=== PATIENT | male | born 1965 | race Caucasian/White ===

== ENCOUNTER 2019-03-01 17:54 | Inpatient (IN) | payer OTHER ==
--- NOTE | 2019-03-01 19:11 | ER Document Report ---
ED Medical Screen (RME) - General Chief Complaint: Memory Loss Stated Complaint: BODY SHAKES, POSSIBLE MEMORY LOSS Time Seen by Provider: 03/01/19 18:54 Information source: Patient Notes: Patient presents with after she found him sitting outside in the cold unable to get into their home. states that typically spouse would have called or texted her if there was any issues and would have been able to get in to the garage as he had taught her how to get into the garage. Patient states that he was having shivering episode yesterday and today but is uncertain if he had a fever. Patient denies any complaints although spouse is at his side and is very concerned that he has not been acting normally. I have greeted and performed a rapid initial assessment of this patient. A comprehensive ED assessment and evaluation of the patient, analysis of test results and completion of the medical decision making process will be conducted by additional ED providers. Physical Exam - Vital signs Vitals: Temp Pulse Resp BP Pulse Ox 100 F 128 H 18 128/69 H 97 03/01/19 18:10 03/01/19 18:10 03/01/19 18:10 03/01/19 18:10 03/01/19 18:10 - General General appearance: Alert - Cardiovascular Rhythm: Tachycardia Heart sounds: S1 appreciated, S2 appreciated - Neurological [place] Coma Scale Eye Opening: Spontaneous [place] Coma Scale Verbal: Oriented [place] Coma Scale Motor: Obeys Commands [place] Coma Scale Total: 15 Course - Vital Signs Vital signs: Temp Pulse Resp BP Pulse Ox 100 F 128 H 18 128/69 H 97 03/01/19 18:10 03/01/19 18:10 03/01/19 18:10 03/01/19 18:10 03/01/19 18:10
--- NOTE | 2019-03-01 19:49 | RADIOLOGY REPORT (SQ) ---
EXAM DESCRIPTION: CT HEAD WITHOUT COMPLETED DATE/TIME: 03/01/2019 7:39 pm REASON FOR STUDY: AMS COMPARISON: None. TECHNIQUE: Axial images acquired through the brain without intravenous contrast. Images reviewed wi th bone, brain and subdural windows. Additional sagittal and coronal reconstructions were generated. Images stored on PACS. All CT scanners at this facility use dose modulation, iterative reconstruction, and/or weight based d osing when appropriate to reduce radiation dose to as low as reasonably achievable (ALARA). [facility]: Dose Right [facility]: CareDose [facility]: Dose Right [facility]: Teradose 4D [facility]: Whyteboard RADIATION DOSE: CT Rad equipment meets quality standard of care and radiation dose reduction techniq ues were employed. CTDIvol: 53.2 mGy. DLP: 1070 mGy-cm. mGy. LIMITATIONS: None. FINDINGS: VENTRICLES: Normal size and contour. CEREBRUM: No masses. No hemorrhage. No midline shift. No evidence for acute infarction. Normal gra y/white matter differentiation. No areas of low density in the white matter. CEREBELLUM: No masses. No hemorrhage. No alteration of density. No evidence for acute infarction. EXTRAAXIAL SPACES: No fluid collections. No masses. ORBITS AND GLOBE: No intra- or extraconal masses. Normal contour of globe without masses. CALVARIUM: No fracture. PARANASAL SINUSES: No fluid or mucosal thickening. SOFT TISSUES: No mass or hematoma. OTHER: No other significant finding. IMPRESSION: NORMAL BRAIN CT WITHOUT CONTRAST. EVIDENCE OF ACUTE STROKE: NO. COMMENT: Quality ID # [id number]: Final reports with documentation of one or more dose reduction techniques (e.g., Automated exposure control, adjustment of the mA and/or kV according to patient size, use of iterative reconstruction technique) TECHNICAL DOCUMENTATION: JOB ID: [id number] [email or web address]- All Rights Reserved Reading location - IP/workstation name: [email or web address]
--- NOTE | 2019-03-01 19:55 | RADIOLOGY REPORT (SQ) ---
EXAM DESCRIPTION: CHEST 2 VIEWS COMPLETED DATE/TIME: 03/01/2019 7:29 pm REASON FOR STUDY: AMS, chills COMPARISON: None. EXAM PARAMETERS: NUMBER OF VIEWS: two views TECHNIQUE: Digital Frontal and Lateral radiographic views of the chest acquired. RADIATION DOSE: NA LIMITATIONS: none FINDINGS: LUNGS AND PLEURA: No opacities, masses or pneumothorax. No pleural effusion. MEDIASTINUM AND HILAR STRUCTURES: No masses or contour abnormalities. HEART AND VASCULAR STRUCTURES: Heart normal size. No evidence for failure. BONES: No acute findings. HARDWARE: None in the chest. OTHER: No other significant finding. IMPRESSION: NO ACUTE RADIOGRAPHIC FINDING IN THE CHEST. TECHNICAL DOCUMENTATION: JOB ID: [id number] [employer]- All Rights Reserved Reading location - IP/workstation name: [email or web address]
[2019-03-01 20:16] LABS: HEMOGLOBIN 11.8 g/dL (13.5-17.0); MEAN CORPUSCULAR HEMOGLOBIN 26.7 pg (27.0-33.4); MEAN CORPUSCULAR HGB CONC 33.6 g/dL (32.0-36.0); MEAN CORPUSCULAR VOLUME 79 fl (80-97); PLATELET COUNT 200 10^3/uL (150-450); RED BLOOD COUNT 4.41 10^6/uL (4.35-5.55); RED CELL DISTRIBUTION WIDTH 14.8 % (11.5-14.0); WHITE BLOOD COUNT 14.2 10^3/uL (4.0-10.5)
[2019-03-01 20:25] LABS: APPEARANCE,URINE SLIGHTLY-CLOUDY; BILIRUBIN,URINE NEGATIVE (NEGATIVE); COLOR,URINE YELLOW; GLUCOSE, URINE >=500 mg/dL (NEGATIVE); KETONES,URINE 80 mg/dL (NEGATIVE); LEUKOCYTE ESTERASE,URINE NEGATIVE (NEGATIVE); NITRITE,URINE POSITIVE (NEGATIVE); PROTEIN,URINE 100 mg/dL (NEGATIVE); URINE SPECIFIC GRAVITY 1.023; UROBILINOGEN,URINE NEGATIVE mg/dL (<2.0)
[2019-03-01 20:35] LABS: URINE AMPHETAMINES SCREEN NEGATIVE; URINE BARBITURATES SCREEN NEGATIVE; URINE BENZODIAZEPINES SCREEN NEGATIVE; URINE COCAINE SCREEN NEGATIVE; URINE MARIJUANA (THC) SCREEN NEGATIVE; URINE METHADONE SCREEN NEGATIVE; URINE PHENCYCLIDINE SCREEN NEGATIVE
[2019-03-01 20:39] LABS: ALBUMIN 3.6 g/dL (3.5-5.0); ALKALINE PHOSPHATASE 104 U/L (38-126); ASPARTATE AMINO TRANSFERASE 24 U/L (17-59); BILIRUBIN,DIRECT 0.3 mg/dL (0.0-0.4); BILIRUBIN,TOTAL 0.5 mg/dL (0.2-1.3); BLOOD UREA NITROGEN 31 mg/dL (7-20); CALCIUM 9.1 mg/dL (8.4-10.2); CHLORIDE 90 mmol/L (98-107); POTASSIUM 4.4 mmol/L (3.6-5.0); TOTAL PROTEIN 6.8 g/dL (6.3-8.2)
[2019-03-01 20:43] LABS: ABSOLUTE LYMPHOCYTES# (MANUAL) 0.3 10^3/uL (0.5-4.7); ABSOLUTE MONOCYTES # (MANUAL) 1.1 10^3/uL (0.1-1.4); ANISOCYTOSIS SLIGHT; BAND NEUTROPHILS % (MANUAL) 9 % (3-5); BASOPHILS % (MANUAL) 0 % (0-2); EOSINOPHILS % (MANUAL) 0 % (0-6); LYMPHOCYTES % (MANUAL) 2 % (13-45); MONOCYTES % (MANUAL) 8 % (3-13); SEGMENTED NEUTROPHILS % (MAN) 81 % (42-78); TOTAL CELLS COUNTED 100
[2019-03-01 20:44] LABS: CARBON DIOXIDE 17 mmol/L (22-30)
[2019-03-01 20:45] LABS: PLATELET COMMENT ADEQUATE
[2019-03-01 20:57] LABS: ANION GAP 23 (5-19)
[2019-03-01 21:00] LABS: GLUCOSE 522 mg/dL (75-110)
[2019-03-01] MEDS ORDERED: NORMAL SALINE 1000 ML 2,500 ML IV ONE (21:37)
[2019-03-01] MEDS ORDERED: CEFTRIAXONE 2 GM/D5W RTU 2 GM/50 ML RTUPB IV ONE (21:38)
--- NOTE | 2019-03-01 21:44 | ER Document Report ---
ED General - General Chief Complaint: Altered Mental Status Stated Complaint: BODY SHAKES, POSSIBLE MEMORY LOSS Time Seen by Provider: 03/01/19 18:54 Notes: Patient is a 53-year-old male that comes emergency department for chief complaint of generalized weakness, shaking chills, breaking out in sweats, and intermittent confusion and memory issues which started last night. Patient states he had the chills last night, today his boss took him home because he could not stop shivering, states that he was having recollection issues and was sluggish when she found him. Patient is not altered otherwise. Patient denies headache, sore throat, shortness of breath, chest pain, abdominal pain, vomiting. He states he has been "urinating every hour" and he recently was constipated but this resolved. He takes no daily medications, he denies smoking, alcohol, recreational drugs, he denies any surgeries, he does not have a primary care or any medical diagnosis. - Related Data Allergies/Adverse Reactions: No Known Allergies Allergy (Unverified 03/01/19 22:14) Past Medical History - General Information source: Patient - Social History Smoking Status: Never Smoker Frequency of alcohol use: None Drug Abuse: None Lives with: Family Family History: Reviewed & Not Pertinent Patient has suicidal ideation: No Patient has homicidal ideation: No Surgical Hx: Negative - Immunizations Immunizations up to date: Yes Hx Diphtheria, Pertussis, Tetanus Vaccination: Yes Review of Systems - Review of Systems Constitutional: See HPI EENT: No symptoms reported Cardiovascular: No symptoms reported Respiratory: No symptoms reported Gastrointestinal: No symptoms reported Genitourinary: See HPI Male Genitourinary: No symptoms reported Musculoskeletal: No symptoms reported Skin: No symptoms reported Hematologic/Lymphatic: No symptoms reported Neurological/Psychological: See HPI Physical Exam - Vital signs Vitals: Temp Pulse Resp BP Pulse Ox 100 F 128 H 18 128/69 H 97 03/01/19 18:10 03/01/19 18:10 03/01/19 18:10 03/01/19 18:10 03/01/19 18:10 - Notes Notes: GENERAL: Patient pale, he is alert and interactive but he is slightly ill- appearing HEAD: Normocephalic, atraumatic. EYES: Pupils equal, round, and reactive to light. Extraocular movements intact. ENT: Oral mucosa dry, tongue midline. Oropharynx unremarkable. Airway patent. NECK: Full range of motion. Supple. Trachea midline. LUNGS: Clear to auscultation bilaterally, no wheezes, rales, or rhonchi. No respiratory distress. HEART: Tachycardia, normal rhythm, no murmur ABDOMEN: Soft, non-tender. Non-distended. EXTREMITIES: Moves all 4 extremities spontaneously. No edema, normal radial and dorsalis pedis pulses bilaterally. No cyanosis. BACK: no cervical, thoracic, lumbar midline tenderness. No saddle anesthesia, normal distal neurovascular exam. Moves all extremities in full range of motion. NEUROLOGICAL: Alert and oriented x3. Normal speech. Cranial nerves II through XII grossly intact. PSYCH: Normal affect, normal mood. SKIN: Pale Course - Re-evaluation Re-evalutation: Patient with initial temperature of 100, tachycardic, has shaking chills, has bandemia 9%, has evidence of urinary tract infection, has no insight diabetes with marked hyperglycemia and some acidosis. Unclear if the acidosis is from the hyperglycemia or from suspected sepsis. When I had the patient we immediately placed 2 large-bore peripheral IVs, began IV fluid resuscitation, and started antibiotic coverage for suspected urinary tract source. Cultures are all pending. Lactic acid fortunately is not elevated. Patient still has a stable blood pressure. Patient is alert and oriented, CAT scan of the head is negative. Patient will require hospitalization for new diabetes and suspected sepsis. I discussed with patient at length, he states agreement and appreciation. Discussed with Dr. Durham, hospitalist, patient accepted to [facility] full admission. He agrees with IV fluid resuscitation and does not recommend insulin drip at this time. - Vital Signs Vital signs: Temp Pulse Resp BP Pulse Ox 98.8 F 101 H 22 H 116/72 94 03/02/19 03:05 03/02/19 03:05 03/02/19 03:05 03/02/19 03:05 03/02/19 03:05 - Laboratory Result Diagrams: 03/02/19 05:22 03/02/19 05:22 Laboratory results interpreted by me: 03/01/19 03/01/19 03/01/19 19:47 19:47 19:47 WBC 14.2 H Hgb 11.8 L Hct 35.0 L MCV 79 L MCH 26.7 L RDW 14.8 H Seg Neuts % (Manual) 81 H Band Neutrophils % 9 H Lymphocytes % (Manual) 2 L Abs Neuts (Manual) 12.8 H Abs Lymphs (Manual) 0.3 L Sodium 130.2 L Chloride 90 L Carbon Dioxide 17 L Anion Gap 23 H BUN 31 H Glucose 522 H* POC Glucose Urine Protein 100 H Urine Glucose (UA) >=500 H Urine Ketones 80 H Urine Blood MODERATE H Urine Nitrite POSITIVE H 03/01/19 22:00 WBC Hgb Hct MCV MCH RDW Seg Neuts % (Manual) Band Neutrophils % Lymphocytes % (Manual) Abs Neuts (Manual) Abs Lymphs (Manual) Sodium Chloride Carbon Dioxide Anion Gap BUN Glucose POC Glucose 548 H* Urine Protein Urine Glucose (UA) Urine Ketones Urine Blood Urine Nitrite Discharge - Discharge Clinical Impression: Bandemia, Shaking chills, Tachycardia, Newly diagnosed diabetes, Metabolic acidosis Urinary tract infection Qualifiers: Urinary tract infection type: site unspecified Hematuria presence: without hematuria Qualified Code(s): N39.0 - Urinary tract infection, site not specified Condition: Serious Disposition: ADMITTED INPATIENT Admitting Provider: Herminio (Hospitalist) Unit Admitted: [facility]
--- NOTE | 2019-03-01 22:01 | EKG REPORT ---
SEVERITY:- ABNORMAL ECG - SINUS TACHYCARDIA PROBABLE LEFT ATRIAL ABNORMALITY CONSIDER ANTEROSEPTAL INFARCT BORDERLINE T WAVE ABNORMALITIES : Confirmed by: Mary Pope 01-Mar-2019 22:00:41
[2019-03-01] MEDS ORDERED: MAG HYDROX/AL HYDROX/SIMETH SUSP 30 ML UDCUP PO PRN (22:30)
[2019-03-01] MEDS ORDERED: PROMETHAZINE HCL INJ 25 MG/1 ML VIAL IV PRN (22:30)
[2019-03-01] MEDS ORDERED: MAGNESIUM HYDROXIDE SUSP 30 ML UDCUP PO PRN (22:30)
[2019-03-01] MEDS ORDERED: RINGERS SOLUTION,LACTATED 1,000 ML IV PRN (22:30)
[2019-03-01] MEDS ORDERED: ACETAMINOPHEN 325 MG TABLET PO PRN (22:38)
[2019-03-01] MEDS ORDERED: INSULIN REG, HUMAN 100 UNIT/ML 3 ML VIAL (PYX) SUBCUT PRN (22:38)
[2019-03-01] MEDS ORDERED: MORPHINE SULFATE 10 MG/ML INJ IV PRN ×3 (22:38)
[2019-03-01] MEDS ORDERED: DEXTROSE 50%-WATER 25 GM/50 ML DISP.SYRIN IV PRN ×2 (22:39)
[2019-03-01] MEDS ORDERED: GLUCAGON,HUMAN RECOMB 1 MG INJ IM PRN (22:39)
[2019-03-01] MEDS ORDERED: DEXTROSE 40% GEL 15 GM TUBE PO PRN ×2 (22:39)
[2019-03-01] MEDS ORDERED: NORMAL SALINE 100 ML with INSULIN REGULAR, HUMAN 100 UNIT IV PRN ×2 (22:41)
[2019-03-01] MEDS ORDERED: MEROPENEM 1 GM VIAL IV PRN (22:45)
[2019-03-01] MEDS ORDERED: DOPAMINE HCL/DEXTROSE 5%-WATER 800 MG/250 ML RTUINJ IV PRN (22:46)
[2019-03-01 23:02] LABS: VENOUS BLOOD BASE EXCESS -9.2 mmol/L; VENOUS BLOOD HCO3 15.6 mmol/L (20-32); VENOUS BLOOD PCO2 31.9 mmHg (35-63); VENOUS BLOOD PH 7.31 (7.30-7.42)
[2019-03-01] MEDS: FAMOTIDINE 20 MG TABLET PO SCH (23:29)
[2019-03-01] MEDS ORDERED: MEROPENEM 1 GM in NORMAL SALINE 50 ML IV ONE (23:30)
[2019-03-02] MEDS ORDERED: INSULIN REG, HUMAN 100 UNIT/ML 3 ML VIAL (PYX) IV ONE (00:36)
--- NOTE | 2019-03-02 00:57 | PDOC H&P ---
History of Present Illness Admission Date/PCP: 03/01/2019 22:06 No local PCP Patient complains of: Rigors History of Present Illness: ANITA MUSTAFA is a 53 year old male who presents the emergency room with a 1 day history of severe rigors. The patient admits having numerous episodes of rigors associated with alternate chilling and diaphoresis with subjective fever. His rigors were accompanied by progressively worsening generalized weakness and brief episodes of mental slowness/confusion over the last 24 hours. He further admits frequent urination over the last 24 hours but otherwise denies additional associated or accompanying signs and symptoms. He denies prior similar episodes. He has not identified any aggravating or ameliorating factors for his rigors. In the emergency room he was found to have pyuria with an elevated white blood count of 14,200 with 9% bands. He was also noted to have a blood sugar of 522 without a previous history of diabetes. He was initially tachycar dic and hypotensive on his arrival to the ER and was also noted to have a mild metabolic acidosis. He was treated with high-volume fluid replacement and antibiotic therapy was initiated after blood and urine cultures were obtained. His blood pressure and heart rate improved over his course of therapy in the emergency room and he was subsequently admitted to the [facility] for further evaluation and treatment. Past Medical History Cardiac Medical History: Denies: Coronary Artery Disease, Myocardial Infarction, Hyperlipidema, Hypertension Pulmonary Medical History: Denies: Asthma, Chronic Obstructive Pulmonary Disease (COPD) EENT Medical History: Denies: Cataracts, Ears - Hearing aids Neurological Medical History: Denies: Hemorrhagic CVA, Ischemic CVA, Seizures Endocrine Medical History: Denies: Diabetes Mellitus Type 1, Diabetes Mellitus Type 2, Hyperthyroidism, Hypothyroidism, Obesity Renal/ Medical History: Denies: Chronic Kidney Disease, Nephrolithiasis Malignancy Medical History: Reports: None GI Medical History: Denies: Cirrhosis, Crohn's Disease, Gastroesophageal Reflux Disease, Hepatitis, Peptic Ulcer Disease, Ulcerative Colitis Musculoskeltal Medical History: Denies: Arthritis, Gout Skin Medical History: Denies: Eczema, Psoriasis Psychiatric Medical History: Denies: Alcohol Dependency, Substance Abuse, Tobacco Dependency Traumatic Medical History: Reports: None Hematology: Denies: Anemia, Bleeding Tendencies Infectious Medical History: Reports: None Past Surgical History Past Surgical History: Reports: None Social History Information Source: Patient Lives with: Spouse/Significant other Smoking Status: Never Smoker Electronic Cigarette use?: No Frequency of Alcohol Use: None Hx Recreational Drug Use: No Drugs: None Hx Prescription Drug Abuse: No - Advance Directive Resuscitation Status: Full Code Surrogate healthcare decision maker:: Marion Mustafa Family History Family History: denies: CAD, DM, Hypertension, Malignancy Parental Family History Reviewed: Yes Children Family History Reviewed: No Sibling(s) Family History Reviewed.: Yes Medication/Allergy Allergies/Adverse Reactions: No Known Allergies Allergy (Unverified 03/01/19 22:14) Review of Systems Constitutional: PRESENT: as per HPI, chills, weakness - Generalized weakness, other - Rigors Eyes: ABSENT: visual disturbances, other - Eye pain Ears: ABSENT: hearing changes, other - Ear pain Nose, Mouth, and Throat: ABSENT: headache(s), mouth pain, sore throat Cardiovascular: ABSENT: chest pain, palpitations Respiratory: ABSENT: cough, dyspnea Gastrointestinal: PRESENT: constipation - Recent constipation resolved prior to onset of current symptoms. ABSENT: abdominal pain, diarrhea, nausea, vomiting Genitourinary: ABSENT: dysuria, hematuria Musculoskeletal: PRESENT: as per HPI, muscle weakness - Generalized. ABSENT: back pain, joint swelling Integumentary: ABSENT: pruritus, rash Neurological: PRESENT: as per HPI, confusion - Mental slowness and difficulty remembering, memory loss - Mental slowness and difficulty remembering. ABSENT: convulsions, focal weakness, syncope Psychiatric: ABSENT: anxiety, depression Endocrine: PRESENT: as per HPI, polyuria. ABSENT: cold intolerance, heat intolerance, polydipsia, polyphagia Hematologic/Lymphatic: ABSENT: easy bleeding, easy bruising Allergic/Immunologic: ABSENT: seasonal rhinorrhea Physical Exam Vital Signs: Temp Pulse Resp BP Pulse Ox 100 F 128 H 18 128/69 H 97 03/01/19 18:10 03/01/19 18:10 03/01/19 18:10 03/01/19 18:10 03/01/19 18:10 Intake & Output 02/27/19 02/28/19 03/01/19 23:59 23:59 23:59 Weight 83.915 kg General appearance: PRESENT: no acute distress, cooperative Head exam: PRESENT: atraumatic, normocephalic Eye exam: PRESENT: conjunctiva pink. ABSENT: conjunctival injection, scleral icterus Ear exam: PRESENT: normal external ear exam. ABSENT: bleeding, drainage Mouth exam: PRESENT: dry mucosa, neck supple Neck exam: ABSENT: thyromegaly, tracheal deviation Respiratory exam: PRESENT: clear to auscultation abhay, tachypnea, unlabored. ABSENT: symmetrical Cardiovascular exam: PRESENT: RRR, tachycardia. ABSENT: clicks, gallop, rubs Pulses: PRESENT: normal radial pulses, normal dorsalis pedis pul Vascular exam: PRESENT: normal capillary refill. ABSENT: pallor GI/Abdominal exam: PRESENT: normal bowel sounds, soft Rectal exam: PRESENT: deferred Extremities exam: ABSENT: joint swelling, pedal edema Musculoskeletal exam: ABSENT: deformity, dislocation Neurological exam: PRESENT: alert, oriented to person, oriented to place, oriented to time, oriented to situation, CN II-XII grossly intact. ABSENT: motor sensory deficit Psychiatric exam: PRESENT: appropriate affect, normal mood Skin exam: PRESENT: dry, intact, warm. ABSENT: jaundice, rash, urticaria Results Laboratory Results: 03/01/19 19:47 03/01/19 19:47 03/01/19 03/01/19 03/01/19 19:47 19:47 19:47 WBC 14.2 H RBC 4.41 Hgb 11.8 L Hct 35.0 L MCV 79 L MCH 26.7 L MCHC 33.6 RDW 14.8 H Plt Count 200 Seg Neutrophils % Not Reportable Sodium 130.2 L Potassium 4.4 Chloride 90 L Carbon Dioxide 17 L Anion Gap 23 H BUN 31 H Creatinine 1.05 Est GFR ( Amer) > 60 Glucose 522 H* Lactic Acid Calcium 9.1 Total Bilirubin 0.5 AST 24 Alkaline Phosphatase 104 Total Protein 6.8 Albumin 3.6 Urine Color YELLOW Urine Appearance SLIGHTLY-CLOUDY Urine pH 5.0 Ur Specific Errol 1.023 Urine Protein 100 H Urine Glucose (UA) >=500 H Urine Ketones 80 H Urine Blood MODERATE H Urine Nitrite POSITIVE H Ur Leukocyte Esterase NEGATIVE Urine WBC (Auto) 19 Urine RBC (Auto) 4 03/01/19 19:47 WBC RBC Hgb Hct MCV MCH MCHC RDW Plt Count Seg Neutrophils % Sodium Potassium Chloride Carbon Dioxide Anion Gap BUN Creatinine Est GFR ( Amer) Glucose Lactic Acid 1.4 Calcium Total Bilirubin AST Alkaline Phosphatase Total Protein Albumin Urine Color Urine Appearance Urine pH Ur Specific Errol Urine Protein Urine Glucose (UA) Urine Ketones Urine Blood Urine Nitrite Ur Leukocyte Esterase Urine WBC (Auto) Urine RBC (Auto) Impressions: Chest X-Ray 03/01/19 19:07 IMPRESSION: NO ACUTE RADIOGRAPHIC FINDING IN THE CHEST. Head CT 03/01/19 19:07 IMPRESSION: NORMAL BRAIN CT WITHOUT CONTRAST. EVIDENCE OF ACUTE STROKE: NO. Assessment and Plan - Diagnosis (1) Sepsis associated hypotension Is this a current diagnosis for this admission?: Yes (2) Pyuria Is this a current diagnosis for this admission?: Yes (3) Leukocytosis Qualifiers: Leukocytosis type: bandemia Qualified Code(s): D72.825 - Bandemia Is this a current diagnosis for this admission?: Yes (4) Tachycardia Is this a current diagnosis for this admission?: Yes (5) Metabolic acidosis Is this a current diagnosis for this admission?: Yes (6) Rigors Is this a current diagnosis for this admission?: Yes (7) Diabetes mellitus type 2 in nonobese Is this a current diagnosis for this admission?: Yes - Plan Summary Summary: Patient will be admitted to the [facility] where he will receive routine supportive and symptomatic cares. He will be treated per sepsis protocol with IV antibiotic therapy utilizing meropenem 1 g IV every 8 hours pending results of blood and urine culture. He will continue to receive aggressive fluid replacement and his vital signs were monitored very closely. Utilization of vasopressors in the form of dopamine at a renal dosage per protocol will be considered if his systolic blood pressure does not remain greater than 100. Patient's uncontrolled diabetes will be treated with intravenous insulin initially followed by before meals and at bedtime Accu-Cheks with sliding scale insulin and a hypoglycemic protocol in place. Patient will be placed on a diabetic diet and will have therapy initiated with oral metformin. He will use morphine sulfate 2 to 4 mg IV every 2 hours on an as-needed basis for pain. He will use Ativan 1 mg IV every 4 hours on an as-needed basis for anxiety or restlessness. Patient will be followed with daily blood work including a CBC and metabolic profile as appropriate. Additionally magnesium levels, hemoglobin A1c, TSH, lipid profile and other laboratory evaluations will be obtained as deemed necessary. - Time Time Spent with patient: 15-24 minutes Medications reviewed and adjusted accordingly: Yes Anticipated discharge: Home - Inpatient Certification Based on my medical assessment, after consideration of the patient's comorbidities, presenting symptoms, or acuity I expect that the services needed warrant INPATIENT care.: Yes I certify that my determination is in accordance with my understanding of Medicare's requirements for reasonable and necessary INPATIENT services [42 CFR 412.3e].: Yes Medical Necessity: Need Close Monitoring Due to Risk of Patient Decompensation, Need For IV Fluids, Need For Continuous Telemetry Monitoring, Need for Neurological Checks, Need for IV Antibiotics, Risk of Complication if Not Cared For in Hospital
[2019-03-02] MEDS ORDERED: INSULIN REG, HUMAN 100 UNIT/ML 3 ML VIAL (PYX) ONE (01:14)
[2019-03-02] MEDS ORDERED: INFLUENZA QUAD (6MOS+) 2019-20 VAC 0.5 ML SYR IM ONE (02:24)
[2019-03-02 05:35] LABS: HEMATOCRIT 31.3 % (37.9-51.0); HEMOGLOBIN 10.9 g/dL (13.5-17.0); MEAN CORPUSCULAR VOLUME 77 fl (80-97); PLATELET COUNT 157 10^3/uL (150-450); RED BLOOD COUNT 4.06 10^6/uL (4.35-5.55); RED CELL DISTRIBUTION WIDTH 15.2 % (11.5-14.0); WHITE BLOOD COUNT 12.1 10^3/uL (4.0-10.5)
[2019-03-02 06:02] LABS: ALKALINE PHOSPHATASE 88 U/L (38-126); ANION GAP 16 (5-19); ASPARTATE AMINO TRANSFERASE 31 U/L (17-59); BILIRUBIN,DIRECT 0.3 mg/dL (0.0-0.4); BILIRUBIN,TOTAL 0.4 mg/dL (0.2-1.3); BLOOD UREA NITROGEN 24 mg/dL (7-20); CALCIUM 8.1 mg/dL (8.4-10.2); CARBON DIOXIDE 18 mmol/L (22-30); CHLORIDE 100 mmol/L (98-107); GLUCOSE 318 mg/dL (75-110); POTASSIUM 3.9 mmol/L (3.6-5.0); TOTAL PROTEIN 6.1 g/dL (6.3-8.2); TRIGLYCERIDES 189 mg/dL (<150)
[2019-03-02 06:03] LABS: VLDL CHOLESTEROL 37.8 mg/dL (10-31)
[2019-03-02] MEDS ORDERED: MEROPENEM 1 GM VIAL ONE (06:07)
[2019-03-02 06:12] LABS: DIRECT LDL 83 mg/dL (<100)
[2019-03-02] MEDS: MEROPENEM 1 GM in NORMAL SALINE 50 ML IV SCH ×3 (06:26→21:21)
[2019-03-02] MEDS: HEPARIN SOD (PORCINE) 5,000 UNIT/ML 1 ML VIAL SUBCUT SCH ×3 (06:27→21:20)
[2019-03-02] MEDS ORDERED: METFORMIN HCL 500 MG TABLET PO SCH (08:00)
--- NOTE | 2019-03-02 08:09 | CDI QUERY ---
CDI Query CDI Review: Clinical Documentation Review Patient: MRN: Date: Clinical Documentation Physician Advisors DAGO Patel RN DAGO Martinez RN Ext. [phone] Ext Dear Provider, (name): To better reflect your patients severity of illness, morbidity, and resource utilization Please specify and document in the Progress Notes and Discharge Summary if you are monitoring / treating / evaluating any of the following conditions: The terms probable, suspected, likely, possible or still to be ruled out may be used if you are unable to determine the exact nature of a condition. Query Clinical indicators TEST TEST THIS IS A TEST If determined not applicable, check here [ ] TEST TEST Please acknowledge this query with your electronic signature. Thank you,
[2019-03-02] MEDS ORDERED: INSULIN GLARGINE,HUM.REC.ANLOG 1,000 UNIT/10 ML VIAL (PYX) SUBCUT ONE (09:30)
[2019-03-02] MEDS: FAMOTIDINE 20 MG TABLET PO SCH ×2 (10:02→21:19)
[2019-03-02] MEDS: DOCUSATE SODIUM 100 MG CAPSULE PO SCH ×2 (10:02→17:42)
[2019-03-02] MEDS: METFORMIN HCL 500 MG TABLET PO SCH (10:07)
[2019-03-02] MEDS ORDERED: MORPHINE SULFATE 10 MG/ML INJ IV PRN (12:00)
--- NOTE | 2019-03-02 12:03 | PDOC PROGRESS REPORT ---
Subjective Progress Note for:: 03/02/19 Subjective:: ANITA GAYTAN is a 53 year old male who presents the emergency room with a 1 day history of severe rigors. The patient admits having numerous episodes of rigors associated with alternate chilling and diaphoresis with subjective fever. His rigors were accompanied by progressively worsening generalized weakness and brief episodes of mental slowness/confusion over the last 24 hours. He further admits frequent urination over the last 24 hours but otherwise denies additional associated or accompanying signs and symptoms. He denies prior similar episodes. He has not identified any aggravating or ameliorating factors for his rigors. In the emergency room he was found to have pyuria with an elevated white blood count of 14,200 with 9% bands. He was also noted to have a blood sugar of 522 without a previous history of diabetes. He was initially tachycardic and hypotensive on his arrival to the ER and was also noted to have a mild metabolic acidosis. He was treated with high-volume fluid replacement and antibiotic therapy was initiated after blood and urine cultures were obtained. His blood pressure and heart rate improved over his course of therapy in the emergency room and he was subsequently admitted to the [facility] for further evaluation and treatment. Reason For Visit: SEPSIS WITH HYPOTENSION,URINARY TRACT INFECTION, Physical Exam Vital Signs: Temp Pulse Resp BP Pulse Ox 99.6 F 111 H 18 125/71 95 03/02/19 11:29 03/02/19 11:29 03/02/19 11:29 03/02/19 11:21 03/02/19 11:29 Intake & Output 03/01/19 03/02/19 03/03/19 06:59 06:59 06:59 Intake Total 2925 6 Balance 2925 6 Weight 87.2 kg General appearance: PRESENT: no acute distress, well-developed, well-nourished Head exam: PRESENT: atraumatic, normocephalic Respiratory exam: PRESENT: clear to auscultation abhay. ABSENT: rales, rhonchi, wheezes Cardiovascular exam: PRESENT: RRR. ABSENT: diastolic murmur, rubs, systolic murmur GI/Abdominal exam: PRESENT: normal bowel sounds, soft. ABSENT: distended, guarding, mass, organolmegaly, rebound, tenderness Neurological exam: PRESENT: alert, awake, oriented to person, oriented to place, oriented to time, oriented to situation, CN II-XII grossly intact. ABSENT: motor sensory deficit Results Laboratory Results: 03/02/19 05:22 03/02/19 05:22 03/01/19 03/01/19 03/01/19 19:47 19:47 19:47 WBC 14.2 H RBC 4.41 Hgb 11.8 L Hct 35.0 L MCV 79 L MCH 26.7 L MCHC 33.6 RDW 14.8 H Plt Count 200 Seg Neutrophils % Not Reportable VBG pH VBG pCO2 VBG HCO3 VBG Base Excess Sodium 130.2 L Potassium 4.4 Chloride 90 L Carbon Dioxide 17 L Anion Gap 23 H BUN 31 H Creatinine 1.05 Est GFR ( Amer) > 60 Glucose 522 H* Lactic Acid Calcium 9.1 Magnesium Total Bilirubin 0.5 AST 24 Alkaline Phosphatase 104 Total Protein 6.8 Albumin 3.6 Triglycerides Cholesterol LDL Cholesterol Direct VLDL Cholesterol HDL Cholesterol TSH Urine Color YELLOW Urine Appearance SLIGHTLY-CLOUDY Urine pH 5.0 Ur Specific [place] 1.023 Urine Protein 100 H Urine Glucose (UA) >=500 H Urine Ketones 80 H Urine Blood MODERATE H Urine Nitrite POSITIVE H Ur Leukocyte Esterase NEGATIVE Urine WBC (Auto) 19 Urine RBC (Auto) 4 03/01/19 03/01/19 03/01/19 19:47 22:38 23:32 WBC RBC Hgb Hct MCV MCH MCHC RDW Plt Count Seg Neutrophils % VBG pH 7.31 VBG pCO2 31.9 L VBG HCO3 15.6 L VBG Base Excess -9.2 Sodium Potassium Chloride Carbon Dioxide Anion Gap BUN Creatinine Est GFR ( Amer) Glucose Lactic Acid 1.4 1.0 Calcium Magnesium Total Bilirubin AST Alkaline Phosphatase Total Protein Albumin Triglycerides Cholesterol LDL Cholesterol Direct VLDL Cholesterol HDL Cholesterol TSH Urine Color Urine Appearance Urine pH Ur Specific [place] Urine Protein Urine Glucose (UA) Urine Ketones Urine Blood Urine Nitrite Ur Leukocyte Esterase Urine WBC (Auto) Urine RBC (Auto) 03/02/19 03/02/19 03/02/19 02:06 05:22 05:22 WBC 12.1 H RBC 4.06 L Hgb 10.9 L Hct 31.3 L MCV 77 L MCH 27.0 MCHC 35.0 RDW 15.2 H Plt Count 157 Seg Neutrophils % VBG pH VBG pCO2 VBG HCO3 VBG Base Excess Sodium Potassium Chloride Carbon Dioxide Anion Gap BUN Creatinine Est GFR ( Amer) Glucose Lactic Acid 1.1 1.0 Calcium Magnesium Total Bilirubin AST Alkaline Phosphatase Total Protein Albumin Triglycerides Cholesterol LDL Cholesterol Direct VLDL Cholesterol HDL Cholesterol TSH Urine Color Urine Appearance Urine pH Ur Specific [place] Urine Protein Urine Glucose (UA) Urine Ketones Urine Blood Urine Nitrite Ur Leukocyte Esterase Urine WBC (Auto) Urine RBC (Auto) 03/02/19 03/02/19 05:22 05:22 WBC RBC Hgb Hct MCV MCH MCHC RDW Plt Count Seg Neutrophils % VBG pH VBG pCO2 VBG HCO3 VBG Base Excess Sodium 134.4 L Potassium 3.9 Chloride 100 Carbon Dioxide 18 L Anion Gap 16 BUN 24 H Creatinine 0.76 Est GFR ( Amer) > 60 Glucose 318 H Lactic Acid Calcium 8.1 L Magnesium 2.1 Total Bilirubin 0.4 AST 31 Alkaline Phosphatase 88 Total Protein 6.1 L Albumin 3.0 L Triglycerides 189 H Cholesterol 151.90 LDL Cholesterol Direct 83 VLDL Cholesterol 37.8 H HDL Cholesterol 21 L TSH 0.74 Urine Color Urine Appearance Urine pH Ur Specific [place] Urine Protein Urine Glucose (UA) Urine Ketones Urine Blood Urine Nitrite Ur Leukocyte Esterase Urine WBC (Auto) Urine RBC (Auto) 03/01/19 21:50 Blood Blood Culture (PCR) - Final Escherichia Coli Impressions: Chest X-Ray 03/01/19 19:07 IMPRESSION: NO ACUTE RADIOGRAPHIC FINDING IN THE CHEST. Head CT 03/01/19 19:07 IMPRESSION: NORMAL BRAIN CT WITHOUT CONTRAST. EVIDENCE OF ACUTE STROKE: NO. Assessment and Plan - Diagnosis (1) Sepsis Qualifiers: Sepsis type: Escherichia coli Sepsis acute organ dysfunction status: without acute organ dysfunction Qualified Code(s): A41.51 - Sepsis due to Escherichia coli [E. coli] Is this a current diagnosis for this admission?: Yes Plan: Vitals WNL. Leukocytosis improving. Urine culture growing gram-negative rods. Blood culture positive for gram-negative rods. Presented with hypotension, tachycardia, tachypnea, leukocytosis with bandemia, mild thrombocytopenia. UA positive for nitrites. Lactic acid WNL. Continue broad-spectrum IV antibiotics, cautious volume resuscitation guided by volume status. Follow-up urine and blood culture. (2) Newly diagnosed diabetes Is this a current diagnosis for this admission?: Yes Plan: Family history of type 2 diabetes. Presented with polyuria polydipsia. Denying any upper or lower extremity numbness or tingling. Hemoglobin A1c 11.5%. Urine positive for protein. Diabetic diet, sliding scale insulin, long-acting insulin, pre-meal insulin, Accu-Chek, hypoglycemia protocol. Diabetic education. Patient will greatly benefit from oral hypoglycemics with combination of insulin. Patient is to follow-up with PCP for reevaluation of her diabetic control and adjustment of his insulin dosage. We will start on metformin 500 mg p.o. twice daily to be uptitrated to 2000 mg p.o. twice daily as tolerated. (3) DKA (diabetic ketoacidoses) Qualifiers: Diabetes mellitus type: type 2 Diabetes mellitus complication detail: without coma Qualified Code(s): E11.10 - Type 2 diabetes mellitus with ketoacidosis without coma Is this a current diagnosis for this admission?: Yes Plan: Due to newly diagnosed type 2 diabetes. Presented with blood glucose level of 548. Anion gap 23. Blood glucose level trending down. Anion gap closed. Patient p.o. tolerant. Switch to subcutaneous insulin. Plan as per #2. (4) Gram-negative bacteremia Is this a current diagnosis for this admission?: Yes Plan: Blood culture positive for E. coli pending sensitivity. Urine culture positive for gram-negative rods. Plan as per #1. (5) Hyperlipemia Is this a current diagnosis for this admission?: Yes Plan: ASCVD risk score 8.2%. TSH WNL. Start on medium intensity statins. Diet and lifestyle modification recommended. Outpatient PCP follow-up for LFT monitoring. (6) Urinary tract infection Qualifiers: Urinary tract infection type: site unspecified Hematuria presence: without hematuria Qualified Code(s): N39.0 - Urinary tract infection, site not specified Is this a current diagnosis for this admission?: Yes Plan: Due to gram-negative rods. Likely E. coli. Already on broad-spectrum IV antibiotics for underlying bacteremia and sepsis.
[2019-03-02] MEDS: INSULIN LISPRO 100 UNIT/ML 3 ML VIAL SUBCUT SCH ×3 (12:10→21:20)
[2019-03-03] MEDS: HEPARIN SOD (PORCINE) 5,000 UNIT/ML 1 ML VIAL SUBCUT SCH ×3 (05:54→21:32)
[2019-03-03] MEDS: MEROPENEM 1 GM in NORMAL SALINE 50 ML IV SCH ×2 (05:54→14:19)
[2019-03-03 06:02] LABS: HEMATOCRIT 31.1 % (37.9-51.0); HEMOGLOBIN 10.4 g/dL (13.5-17.0); MEAN CORPUSCULAR HEMOGLOBIN 26.8 pg (27.0-33.4); MEAN CORPUSCULAR HGB CONC 33.5 g/dL (32.0-36.0); MEAN CORPUSCULAR VOLUME 80 fl (80-97); PLATELET COUNT 159 10^3/uL (150-450); RED BLOOD COUNT 3.88 10^6/uL (4.35-5.55); RED CELL DISTRIBUTION WIDTH 15.4 % (11.5-14.0); WHITE BLOOD COUNT 18.2 10^3/uL (4.0-10.5)
[2019-03-03] MEDS: INSULIN LISPRO 100 UNIT/ML 3 ML VIAL SUBCUT SCH ×7 (07:47→21:31)
[2019-03-03] MEDS: FAMOTIDINE 20 MG TABLET PO SCH ×2 (09:11→21:31)
[2019-03-03] MEDS: DOCUSATE SODIUM 100 MG CAPSULE PO SCH ×2 (09:12→17:16)
[2019-03-03] MEDS: METFORMIN HCL 500 MG TABLET PO SCH (09:12)
--- NOTE | 2019-03-03 09:39 | PDOC PROGRESS REPORT ---
Subjective Progress Note for:: 03/03/19 Subjective:: ANITA GAYTAN is a 53 year old male who presents the emergency room with a 1 day history of severe rigors. The patient admits having numerous episodes of rigors associated with alternate chilling and diaphoresis with subjective fever. His rigors were accompanied by progressively worsening generalized weakness and brief episodes of mental slowness/confusion over the last 24 hours. He further admits frequent urination over the last 24 hours but otherwise denies additional associated or accompanying signs and symptoms. He denies prior similar episodes. He has not identified any aggravating or ameliorating factors for his rigors. In the emergency room he was found to have pyuria with an elevated white blood count of 14,200 with 9% bands. He was also noted to have a blood sugar of 522 without a previous history of diabetes. He was initially tachycardic and hypotensive on his arrival to the ER and was also noted to have a mild metabolic acidosis. He was treated with high-volume fluid replacement and antibiotic therapy was initiated after blood and urine cultures were obtained. His blood pressure and heart rate improved over his course of therapy in the emergency room and he was subsequently admitted to the [facility] for further evaluation and treatment. 03/03/2019. No acute events overnight. Denies any fever, chills, nausea, vomiting, diarrhea, constipation or urinary symptoms. Polyuria improving. Ambulatory, having normal bowel and bladder movement. P.o. tolerant. Reason For Visit: SEPSIS WITH HYPOTENSION,URINARY TRACT INFECTION, Physical Exam Vital Signs: Temp Pulse Resp BP Pulse Ox 98.6 F 103 H 18 116/66 96 03/03/19 07:04 03/03/19 07:04 03/03/19 07:04 03/03/19 07:04 03/03/19 07:04 Intake & Output 03/02/19 03/03/19 03/04/19 06:59 06:59 06:59 Intake Total 2925 1894 Balance 2925 1894 Weight 87.2 kg 87.4 kg General appearance: PRESENT: no acute distress, well-developed, well-nourished Head exam: PRESENT: atraumatic, normocephalic Respiratory exam: PRESENT: clear to auscultation abhay. ABSENT: rales, rhonchi, wheezes Cardiovascular exam: PRESENT: RRR. ABSENT: diastolic murmur, rubs, systolic mu rmur GI/Abdominal exam: PRESENT: normal bowel sounds, soft. ABSENT: distended, guarding, mass, organolmegaly, rebound, tenderness Neurological exam: PRESENT: alert, awake, oriented to person, oriented to place, oriented to time, oriented to situation, CN II-XII grossly intact. ABSENT: motor sensory deficit Results Laboratory Results: 03/03/19 05:03 03/02/19 05:22 03/03/19 05:03 WBC 18.2 H RBC 3.88 L Hgb 10.4 L Hct 31.1 L MCV 80 MCH 26.8 L MCHC 33.5 RDW 15.4 H Plt Count 159 03/01/19 21:50 Blood Blood Culture (PCR) - Final Escherichia Coli Impressions: Chest X-Ray 03/01/19 19:07 IMPRESSION: NO ACUTE RADIOGRAPHIC FINDING IN THE CHEST. Head CT 03/01/19 19:07 IMPRESSION: NORMAL BRAIN CT WITHOUT CONTRAST. EVIDENCE OF ACUTE STROKE: NO. Assessment and Plan - Diagnosis (1) Sepsis Qualifiers: Sepsis type: Escherichia coli Sepsis acute organ dysfunction status: without acute organ dysfunction Qualified Code(s): A41.51 - Sepsis due to Escherichia coli [E. coli] Is this a current diagnosis for this admission?: Yes Plan: Vitals WNL. WBC trending up. Urine culture growing gram-negative rods. Blood culture positive for E. coli pending sensitivity. Presented with hypotension, tachycardia, tachypnea, leukocytosis with bandemia, mild thrombocytopenia. UA positive for nitrites. Lactic acid WNL. Day 2 IV antibiotics. Day 2 IV meropenem. Continue broad-spectrum IV antibiotics, cautious volume resuscitation guided by volume status. Follow-up urine and blood culture. (2) Newly diagnosed diabetes Is this a current diagnosis for this admission?: Yes Plan: Family history of type 2 diabetes. Presented with polyuria polydipsia. Denying any upper or lower extremity numbness or tingling. Hemoglobin A1c 11.5%. Urine positive for protein. Diabetic diet, sliding scale insulin, long-acting insulin, pre-meal insulin, Accu-Chek, hypoglycemia protocol. Diabetic education. Patient will greatly benefit from oral hypoglycemics with combination of insulin. Patient is to follow-up with PCP for reevaluation of her diabetic control and adjustment of his insulin dosage. We will start on metformin 500 mg p.o. twice daily to be uptitrated to 2000 mg p.o. twice daily as tolerated. (3) DKA (diabetic ketoacidoses) Qualifiers: Diabetes mellitus type: type 2 Diabetes mellitus complication detail: without coma Qualified Code(s): E11.10 - Type 2 diabetes mellitus with ketoacidosis without coma Is this a current diagnosis for this admission?: Yes Plan: Resolved. Anion gap WNL. Due to newly diagnosed type 2 diabetes. Presented with blood glucose level of 548. Anion gap 23. Blood glucose level trending down. Patient p.o. tolerant. Switch to subcutaneous insulin. Plan as per #2. (4) Gram-negative bacteremia Is this a current diagnosis for this admission?: Yes Plan: Blood culture positive for E. coli pending sensitivity. Urine culture positive for gram-negative rods. Repeat blood cultures. Plan as per #1. (5) Hyperlipemia Is this a current diagnosis for this admission?: Yes Plan: ASCVD risk score 8.2%. TSH WNL. Start on medium intensity statins. Diet and lifestyle modification recommended. Outpatient PCP follow-up for LFT monitoring. (6) Urinary tract infection Qualifiers: Urinary tract infection type: site unspecified Hematuria presence: without hematuria Qualified Code(s): N39.0 - Urinary tract infection, site not specified Is this a current diagnosis for this admission?: Yes Plan: Due to gram-negative rods. Likely E. coli. Already on broad-spectrum IV antibiotics for underlying bacteremia and sepsis.
[2019-03-03] MEDS ORDERED: INSULIN GLARGINE,HUM.REC.ANLOG 1,000 UNIT/10 ML VIAL SUBCUT SCH ×3 (10:00→18:00)
[2019-03-03] MEDS ORDERED: INSULIN GLARGINE,HUM.REC.ANLOG 1,000 UNIT/10 ML VIAL (PYX) SUBCUT ONE ×2 (12:30→18:11)
[2019-03-03] MEDS ORDERED: VANCOMYCIN HCL 0 MG in DEXTROSE 5%-WATER 250 ML IV NR (16:15)
[2019-03-03] MEDS: PIPERACILLIN SODIUM/TAZOBACTAM 4.5 GM in NORMAL SALINE 100 ML IV SCH ×2 (17:17→23:23)
[2019-03-03] MEDS ORDERED: VANCOMYCIN HCL INJ 1000 MG VIAL IV PRN (17:33)
[2019-03-03] MEDS: VANCOMYCIN HCL 1,500 MG in DEXTROSE 5%-WATER 250 ML IV SCH (18:03)
[2019-03-04] MEDS: HEPARIN SOD (PORCINE) 5,000 UNIT/ML 1 ML VIAL SUBCUT SCH ×3 (05:20→22:07)
[2019-03-04] MEDS: PIPERACILLIN SODIUM/TAZOBACTAM 4.5 GM in NORMAL SALINE 100 ML IV SCH ×4 (05:20→23:04)
[2019-03-04] MEDS ORDERED: VANCOMYCIN HCL INJ 1000 MG VIAL ONE (05:58)
[2019-03-04] MEDS ORDERED: VANCOMYCIN HCL INJ 500 MG VIAL ONE (05:58)
[2019-03-04] MEDS: VANCOMYCIN HCL 1,500 MG in DEXTROSE 5%-WATER 250 ML IV SCH (06:11)
[2019-03-04 06:28] LABS: HEMATOCRIT 26.4 % (37.9-51.0); HEMOGLOBIN 9.2 g/dL (13.5-17.0); MEAN CORPUSCULAR HEMOGLOBIN 26.9 pg (27.0-33.4); MEAN CORPUSCULAR VOLUME 77 fl (80-97); PLATELET COUNT 131 10^3/uL (150-450); RED BLOOD COUNT 3.43 10^6/uL (4.35-5.55)
[2019-03-04 06:54] LABS: ANION GAP 12 (5-19); BLOOD UREA NITROGEN 24 mg/dL (7-20); CALCIUM 8.1 mg/dL (8.4-10.2); CARBON DIOXIDE 22 mmol/L (22-30); CHLORIDE 95 mmol/L (98-107); GLUCOSE 337 mg/dL (75-110); POTASSIUM 3.4 mmol/L (3.6-5.0)
[2019-03-04] MEDS: INSULIN LISPRO 100 UNIT/ML 3 ML VIAL SUBCUT SCH ×7 (08:16→22:09)
[2019-03-04] MEDS: NORMAL SALINE 1000 ML 1,000 ML IV PRN ×2 (08:30→22:10)
[2019-03-04 09:36] LABS: CREATININE URINE 41.2 mg/dL (Not Estab.)
[2019-03-04] MEDS: METFORMIN HCL 500 MG TABLET PO SCH ×2 (10:42→17:30)
[2019-03-04] MEDS: DOCUSATE SODIUM 100 MG CAPSULE PO SCH ×2 (10:50→17:38)
[2019-03-04] MEDS ORDERED: INSULIN GLARGINE,HUM.REC.ANLOG 1,000 UNIT/10 ML VIAL SUBCUT SCH (11:00)
--- NOTE | 2019-03-04 11:01 | PDOC PROGRESS REPORT ---
Subjective Progress Note for:: 03/04/19 Subjective:: ANITA GAYTAN is a 53 year old male who presents the emergency room with a 1 day history of severe rigors. The patient admits having numerous episodes of rigors associated with alternate chilling and diaphoresis with subjective fever. His rigors were accompanied by progressively worsening generalized weakness and brief episodes of mental slowness/confusion over the last 24 hours. He further admits frequent urination over the last 24 hours but otherwise denies additional associated or accompanying signs and symptoms. He denies prior similar episodes. He has not identified any aggravating or ameliorating factors for his rigors. In the emergency room he was found to have pyuria with an elevated white blood count of 14,200 with 9% bands. He was also noted to have a blood sugar of 522 without a previous history of diabetes. He was initially tachycardic and hypotensive on his arrival to the ER and was also noted to have a mild metabolic acidosis. He was treated with high-volume fluid replacement and antibiotic therapy was initiated after blood and urine cultures were obtained. His blood pressure and heart rate improved over his course of therapy in the emergency room and he was subsequently admitted to the [facility] for further evaluation and treatment. 03/03/2019. No acute events overnight. Denies any fever, chills, nausea, vomiting, diarrhea, constipation or urinary symptoms. Polyuria improving. Ambulatory, having normal bowel and bladder movement. P.o. tolerant. 03/04/2019. No acute events overnight. Denies any fever, chills, nausea, v omiting, diarrhea, constipation or any urinary symptoms. Reason For Visit: SEPSIS WITH HYPOTENSION,URINARY TRACT INFECTION, Physical Exam Vital Signs: Temp Pulse Resp BP Pulse Ox 98.1 F 91 20 128/88 H 95 03/04/19 07:56 03/04/19 07:56 03/04/19 07:56 03/04/19 07:56 03/04/19 07:56 Intake & Output 03/03/19 03/04/19 03/05/19 06:59 06:59 06:59 Intake Total 1894 2335 Output Total 200 Balance 1894 2135 Weight 87.4 kg 90.5 kg General appearance: PRESENT: obese Head exam: PRESENT: atraumatic, normocephalic Respiratory exam: PRESENT: clear to auscultation abhay. ABSENT: rales, rhonchi, wheezes GI/Abdominal exam: PRESENT: normal bowel sounds, soft. ABSENT: distended, guarding, mass, organolmegaly, rebound, tenderness Neurological exam: PRESENT: alert, awake, oriented to person, oriented to place, oriented to time, oriented to situation, CN II-XII grossly intact. ABSENT: motor sensory deficit Results Laboratory Results: 03/04/19 05:36 03/04/19 05:36 03/04/19 03/04/19 05:36 05:36 WBC 11.0 H RBC 3.43 L Hgb 9.2 L Hct 26.4 L MCV 77 L MCH 26.9 L MCHC 35.0 RDW 15.0 H Plt Count 131 L Sodium 128.9 L Potassium 3.4 L Chloride 95 L Carbon Dioxide 22 Anion Gap 12 BUN 24 H Creatinine 0.77 Est GFR ( Amer) > 60 Glucose 337 H Calcium 8.1 L 03/01/19 21:50 Blood Blood Culture (PCR) - Final Escherichia Coli 03/01/19 21:50 Blood Blood Culture - Final Escherichia Coli 03/01/19 19:47 Clean Catch Midstream Urine Culture - Final Escherichia Coli Impressions: Chest X-Ray 03/01/19 19:07 IMPRESSION: NO ACUTE RADIOGRAPHIC FINDING IN THE CHEST. Head CT 03/01/19 19:07 IMPRESSION: NORMAL BRAIN CT WITHOUT CONTRAST. EVIDENCE OF ACUTE STROKE: NO. Assessment and Plan - Diagnosis (1) Sepsis Qualifiers: Sepsis type: Escherichia coli Sepsis acute organ dysfunction status: without acute organ dysfunction Qualified Code(s): A41.51 - Sepsis due to Escherichia coli [E. coli] Is this a current diagnosis for this admission?: Yes Plan: Vitals WNL. WBC trending down since being started on Zosyn. Blood and urine culture both positive for E. coli. Presented with hypotension, tachycardia, tachypnea, leukocytosis with bandemia, mild thrombocytopenia. UA positive for nitrites. Lactic acid WNL. Day 3 IV antibiotics. Day 2 IV Zosyn. Received 2 days of IV meropenem. DC'd meropenem 03/03/2019. Received 1 day of IV vancomycin. DC'd vancomycin 03/04/2019. Continue broad-spectrum IV antibiotics, cautious volume resuscitation guided by volume status. Follow-up urine and blood culture. (2) Gram-negative bacteremia Is this a current diagnosis for this admission?: Yes Plan: Blood culture positive 1/2 for E. coli pansensitive. Urine culture positive for E. coli resistant to quinolones. Blood cultures no growth so far. Plan as per #1. (3) Newly diagnosed diabetes Is this a current diagnosis for this admission?: Yes Plan: Family history of type 2 diabetes. Presented with polyuria polydipsia. Denying any upper or lower extremity numbness or tingling. Hemoglobin A1c 11.5%. Urine positive for protein. Diabetic diet, sliding scale insulin, long-acting insulin, pre-meal insulin, Accu-Chek, hypoglycemia protocol. Diabetic education. Patient will greatly benefit from oral hypoglycemics with combination of insulin. Patient is to follow-up with PCP for reevaluation of her diabetic control and adjustment of his insulin dosage. We will start on metformin 500 mg p.o. twice daily to be uptitrated to 2000 mg p.o. twice daily as tolerated. (4) DKA (diabetic ketoacidoses) Qualifiers: Diabetes mellitus type: type 2 Diabetes mellitus complication detail: without coma Qualified Code(s): E11.10 - Type 2 diabetes mellitus with ketoacidosis without coma Is this a current diagnosis for this admission?: Yes Plan: Resolved. Anion gap WNL. Due to newly diagnosed type 2 diabetes. Presented with blood glucose level of 548. Anion gap 23. Blood glucose level trending down. Patient p.o. tolerant. Switch to subcutaneous insulin. Plan as per #2. (5) Hyperlipemia Is this a current diagnosis for this admission?: Yes Plan: ASCVD risk score 8.2%. TSH WNL. Start on medium intensity statins. Diet and lifestyle modification recommended. Outpatient PCP follow-up for LFT monitoring. (6) Urinary tract infection Qualifiers: Urinary tract infection type: site unspecified Hematuria presence: without hematuria Qualified Code(s): N39.0 - Urinary tract infection, site not s pecified Is this a current diagnosis for this admission?: Yes Plan: Due to E. coli resistant to quinolones. Already on broad-spectrum IV antibiotics for underlying bacteremia and sepsis. (7) LARRY (obstructive sleep apnea) Is this a current diagnosis for this admission?: Yes Plan: Patient was noted to become hypoxic while asleep. also reported noticing some nocturnal apneic episode at home. Nocturnal CPAP. Outpatient nocturnal polysomnography recommended. Patient educated about consequences of untreated LARRY. Voiced understanding.
[2019-03-04] MEDS: FAMOTIDINE 20 MG TABLET PO SCH ×2 (11:57→22:07)
[2019-03-04 15:30] LABS: MICROALBUMIN URINE 411.3 ug/mL (Not Estab.)
[2019-03-04] MEDS ORDERED: INSULIN GLARGINE,HUM.REC.ANLOG 1,000 UNIT/10 ML VIAL (PYX) SUBCUT PRN ×2 (17:26→17:30)
[2019-03-04] MEDS: INSULIN GLARGINE,HUM.REC.ANLOG 1,000 UNIT/10 ML VIAL SUBCUT SCH (22:10)
[2019-03-05 05:18] LABS: ABSOLUTE EOSINOPHILS # (AUTO) 0.1 10^3/uL (0.0-0.6); ABSOLUTE LYMPHOCYTES (AUTO) 1.2 10^3/uL (0.5-4.7); ABSOLUTE MONOCYTES (AUTO) 0.8 10^3/uL (0.1-1.4); BASOPHILS % (AUTO) 0.3 % (0-2); EOSINOPHILS % (AUTO) 1.7 % (0-6); HEMATOCRIT 25.9 % (37.9-51.0); HEMOGLOBIN 9.3 g/dL (13.5-17.0); LYMPHOCYTES % (AUTO) 14.2 % (13-45); MEAN CORPUSCULAR HEMOGLOBIN 27.3 pg (27.0-33.4); MEAN CORPUSCULAR VOLUME 76 fl (80-97); MONOCYTES % (AUTO) 10.3 % (3-13); PLATELET COUNT 141 10^3/uL (150-450); RED CELL DISTRIBUTION WIDTH 14.8 % (11.5-14.0); SEGMENTED NEUTROPHILS % (AUTO) 73.5 % (42-78); TOTAL CELLS COUNTED % (AUTO) 100 %; WHITE BLOOD COUNT 8.2 10^3/uL (4.0-10.5)
[2019-03-05] MEDS: HEPARIN SOD (PORCINE) 5,000 UNIT/ML 1 ML VIAL SUBCUT SCH ×2 (05:33→13:02)
[2019-03-05] MEDS: PIPERACILLIN SODIUM/TAZOBACTAM 4.5 GM in NORMAL SALINE 100 ML IV SCH ×2 (05:35→12:29)
[2019-03-05 05:36] LABS: ANION GAP 11 (5-19); BLOOD UREA NITROGEN 23 mg/dL (7-20); CALCIUM 7.9 mg/dL (8.4-10.2); CARBON DIOXIDE 21 mmol/L (22-30); CHLORIDE 98 mmol/L (98-107); GLUCOSE 210 mg/dL (75-110); POTASSIUM 3.2 mmol/L (3.6-5.0)
[2019-03-05] MEDS ORDERED: INSULIN LISPRO 100 UNIT/ML 3 ML VIAL SUBCUT SCH (08:00)
[2019-03-05] MEDS: INSULIN LISPRO 100 UNIT/ML 3 ML VIAL SUBCUT SCH ×6 (08:25→17:17)
[2019-03-05] MEDS: POTASSIUM CHLORIDE 10 MEQ TABLET.ER PO SCH ×2 (08:26→12:29)
[2019-03-05] MEDS: DOCUSATE SODIUM 100 MG CAPSULE PO SCH ×2 (09:26→17:18)
[2019-03-05] MEDS: FAMOTIDINE 20 MG TABLET PO SCH (09:27)
[2019-03-05] MEDS: METFORMIN HCL 500 MG TABLET PO SCH (10:21)
[2019-03-05] MEDS: INSULIN GLARGINE,HUM.REC.ANLOG 1,000 UNIT/10 ML VIAL SUBCUT SCH (10:21)
[2019-03-05 11:29] LABS: APPEARANCE,URINE CLEAR; BILIRUBIN,URINE NEGATIVE (NEGATIVE); COLOR,URINE YELLOW; GLUCOSE, URINE >=500 mg/dL (NEGATIVE); KETONES,URINE NEGATIVE (NEGATIVE); PROTEIN,URINE 30 mg/dL (NEGATIVE); URINE SPECIFIC GRAVITY 1.017; UROBILINOGEN,URINE NEGATIVE mg/dL (<2.0)
[2019-03-05 17:16] LABS: ANION GAP 10 (5-19); BLOOD UREA NITROGEN 19 mg/dL (7-20); CALCIUM 8.5 mg/dL (8.4-10.2); CARBON DIOXIDE 23 mmol/L (22-30); CHLORIDE 98 mmol/L (98-107); GLUCOSE 111 mg/dL (75-110); POTASSIUM 3.8 mmol/L (3.6-5.0)
[2019-03-05 17:49] VITALS: BP 128/69
--- NOTE | 2019-03-06 15:14 | PDOC DISCHARGE SUMMARY ---
Impression - Admit/DC Date/PCP Admission Date/Primary Care Provider: 03/01/19 22:03 Discharge Date: 03/05/19 - Discharge Diagnosis (1) Sepsis Is this a current diagnosis for this admission?: Yes (2) Gram-negative bacteremia Is this a current diagnosis for this admission?: Yes (3) Newly diagnosed diabetes Is this a current diagnosis for this admission?: Yes (4) DKA (diabetic ketoacidoses) Is this a current diagnosis for this admission?: Yes (5) Hyperlipemia Is this a current diagnosis for this admission?: Yes (6) Urinary tract infection Is this a current diagnosis for this admission?: Yes (7) LARRY (obstructive sleep apnea) Is this a current diagnosis for this admission?: Yes - Additional Information Resuscitation Status: Full Code Discharge Diet: Diabetic Discharge Activity: Activity As Tolerated, Balance Activity w/Rest Referrals: [facility] [Provider Group] - 03/09/19 10:30 am ([place] [address] ) Prescriptions: Blood-Glucose Meter [Accu-Chek Chio Plus] 1 kit [facility] PRN 30 Days #1 kit PRN Reason: Blood Sugar Diagnostic [Accu-Chek Chio Plus] 1 strip [facility] PRN 30 Days #1 pkg PRN Reason: Aspirin [Adult Low Dose Aspirin EC] 81 mg PO DAILY 30 Days #30 tablet. Rosuvastatin Calcium [Crestor 20 mg Tablet] 20 mg PO QHS 30 Days #30 tablet Insulin Glargine,Hum.rec.anlog [Lantus Insulin 100 Unit/mL Insulin Pen] 50 unit SUBCUT QHS 30 Days #10 ml Metformin HCl 500 mg PO BID 30 Days #60 tablet Insulin Aspart [Novolog Flexpen] 10 unit SUBCUT .SLD SCALE #4 pen Insulin Aspart [Novolog Insulin (Aspart) 100 unit/mL] 0 - 12 unit SUBCUT .SLD SCALE 30 Days #10 ml Insulin Aspart [Novolog Insulin (Aspart) 100 unit/mL] 10 unit SUBCUT AC 30 Days #10 ml Pen Needle, Diabetic [Pentips Pen Needle] 1 each [facility] 30 Days #150 dis.needle Home Medications: Aspirin [Adult Low Dose Aspirin EC] 81 mg PO DAILY 30 Days #30 tablet. 03/05/19 Blood Sugar Diagnostic [Accu-Chek Chio Plus] 1 strip [facility] PRN 30 Days #1 pkg 03/05/19 Blood-Glucose Meter [Accu-Chek Chio Plus] 1 kit [facility] PRN 30 Days #1 kit 03/05/19 Insulin Aspart [Novolog Flexpen] 10 unit SUBCUT .SLD SCALE #4 pen 03/05/19 Insulin Aspart [Novolog Insulin (Aspart) 100 unit/mL] 0 - 12 unit SUBCUT .SLD SCALE 30 Days #10 ml 03/05/19 Insulin Aspart [Novolog Insulin (Aspart) 100 unit/mL] 10 unit SUBCUT AC 30 Days #10 ml 03/05/19 Insulin Glargine,Hum.rec.anlog [Lantus Insulin 100 Unit/mL Insulin Pen] 50 unit SUBCUT QHS 30 Days #10 ml 03/05/19 Metformin HCl 500 mg PO BID 30 Days #60 tablet 03/05/19 Pen Needle, Diabetic [Pentips Pen Needle] 1 each [facility] 30 Days #150 dis.needle 03/05/19 Rosuvastatin Calcium [Crestor 20 mg Tablet] 20 mg PO QHS 30 Days #30 tablet 03/05/19 History of Present Illiness History of Present Illness: ANITA GAYTAN is a 53 year old male who presents the emergency room with a 1 day history of severe rigors. The patient admits having numerous episodes of rigors associated with alternate chilling and diaphoresis with subjective fever. His rigors were accompanied by progressively worsening generalized weakness and brief episodes of mental slowness/confusion over the last 24 hours. He further admits frequent urination over the last 24 hours but otherwise denies additional associated or accompanying signs and symptoms. He denies prior similar episodes . He has not identified any aggravating or ameliorating factors for his rigors. In the emergency room he was found to have pyuria with an elevated white blood count of 14,200 with 9% bands. He was also noted to have a blood sugar of 522 without a previous history of diabetes. He was initially tachycardic and hypotensive on his arrival to the ER and was also noted to have a mild metabolic acidosis. He was treated with high-volume fluid replacement and antibiotic therapy was initiated after blood and urine cultures were obtained. His blood pressure and heart rate improved over his course of therapy in the emergency room and he was subsequently admitted to the [facility] for further evaluation and treatment. Hospital Course Hospital Course: (1) Sepsis Resolved. Vitals WNL. WBC WNL. Blood cultures 1/2 grew E. coli pansensitive. Presented with hypotension, tachycardia, tachypnea, leukocytosis with bandemia, mild thrombocytopenia. UA positive for nitrites. Lactic acid WNL. Received 4 days of IV antibiotics. Received 3 days of IV Zosyn. Received 2 days of IV meropenem. DC'd meropenem 03/03/2019. Received 1 day of IV vancomycin. DC'd vancomycin 03/04/2019. Was started on broad-spectrum IV antibiotics and transition to p.o. antibiotics upon discharge. Repeat UA negative. Repeat blood cultures no growth. Was discharged on levofloxacin for another 6 days. (2) Gram-negative bacteremia Blood culture positive 1/2 for E. coli pansensitive. Urine culture positive for E. coli resistant to quinolones. Repeat UA negative. Repeat blood cultures no growth. Received 4 days of IV antibiotics. Received 3 days of IV Zosyn. Received 2 days of IV meropenem. DC'd meropenem 03/03/2019. Received 1 day of IV vancomycin. DC'd vancomycin 03/04/2019. Was started on broad-spectrum IV antibiotics and transition to p.o. antibiotics upon discharge. Was discharged on levofloxacin for another 6 days. (3) Newly diagnosed diabetes Family history of type 2 diabetes. Presented with polyuria polydipsia. Denying any upper or lower extremity numbness or tingling. Hemoglobin A1c 11.5%. Urine positive for protein. Started on diabetic diet, sliding scale insulin, long-acting insulin, pre-meal insulin, Accu-Chek, hypoglycemia protocol. Diabetic education provided. Was discharged on basal, prandial and sliding scale insulin. Was discharged on metformin 500 mg p.o. twice daily. Was advised to uptitrate metformin 2000 mg p.o. twice daily as tolerated. Advised to follow-up with PCP and advised on medication adherence. (4) DKA (diabetic ketoacidoses) Resolved. Anion gap WNL. Due to newly diagnosed type 2 diabetes. Presented with blood glucose level of 548. Anion gap 23. Blood glucose level trending down. Patient p.o. tolerant. Switched to subcutaneous insulin. Plan as per #3. (5) Hyperlipemia ASCVD risk score 8.2%. TSH WNL. Start on medium intensity statins. Diet and lifestyle modification recommended. Outpatient PCP follow-up for LFT monitoring. (6) Urinary tract infection Due to E. coli resistant to quinolones. Date 4 days of IV antibiotics including Zosyn and meropenem. Repeat UA negative. (7) LARRY (obstructive sleep apnea) Patient was noted to become hypoxic while asleep. also reported noticing some nocturnal apneic episode at home. Was started on nocturnal CPAP. Outpatient nocturnal polysomnography recommended. Patient educated about consequences of untreated LARRY. Voiced understanding. Physical Exam Vital Signs: Temp Pulse Resp BP Pulse Ox 97.9 F 84 18 128/69 H 99 03/05/19 17:48 03/05/19 17:48 03/05/19 17:48 03/05/19 17:48 03/05/19 17:48 Intake & Output 03/05/19 03/06/19 03/07/19 06:59 06:59 06:59 Intake Total 2700 1949 Output Total 480 Balance 2220 1949 Weight 90.8 kg General appearance: PRESENT: no acute distress, well-developed, well-nourished Head exam: PRESENT: atraumatic, normocephalic Respiratory exam: PRESENT: clear to auscultation abhay. ABSENT: rales, rhonchi, wheezes GI/Abdominal exam: PRESENT: normal bowel sounds, soft. ABSENT: distended, guarding, mass, organolmegaly, rebound, tenderness Neurological exam: PRESENT: alert, awake, oriented to person, oriented to place, oriented to time, oriented to situation, CN II-XII grossly intact. ABSENT: motor sensory deficit Results Laboratory Results: WBC 8.2 10^3/uL (4.0-10.5) 03/05/19 04:24 RBC 3.40 10^6/uL (4.35-5.55) L 03/05/19 04:24 Hgb 9.3 g/dL (13.5-17.0) L 03/05/19 04:24 Hct 25.9 % (37.9-51.0) L 03/05/19 04:24 MCV 76 fl (80-97) L 03/05/19 04:24 MCH 27.3 pg (27.0-33.4) 03/05/19 04:24 MCHC 36.0 g/dL (32.0-36.0) 03/05/19 04:24 RDW 14.8 % (11.5-14.0) H 03/05/19 04:24 Plt Count 141 10^3/uL (150-450) L 03/05/19 04:24 Lymph % (Auto) 14.2 % (13-45) 03/05/19 04:24 [place] % (Auto) 10.3 % (3-13) 03/05/19 04:24 Eos % (Auto) 1.7 % (0-6) 03/05/19 04:24 Baso % (Auto) 0.3 % (0-2) 03/05/19 04:24 Absolute Neuts (auto) 6.0 10^3/uL (1.7-8.2) 03/05/19 04:24 Absolute Lymphs (auto) 1.2 10^3/uL (0.5-4.7) 03/05/19 04:24 Absolute Monos (auto) 0.8 10^3/uL (0.1-1.4) 03/05/19 04:24 Absolute Eos (auto) 0.1 10^3/uL (0.0-0.6) 03/05/19 04:24 Absolute Basos (auto) 0.0 10^3/uL (0.0-0.2) 03/05/19 04:24 Total Counted 100 03/01/19 19:47 Seg Neutrophils % 73.5 % (42-78) 03/05/19 04:24 Seg Neuts % (Manual) 81 % (42-78) H 03/01/19 19:47 Band Neutrophils % 9 % (3-5) H 03/01/19 19:47 Lymphocytes % (Manual) 2 % (13-45) L 03/01/19 19:47 Monocytes % (Manual) 8 % (3-13) 03/01/19 19:47 Eosinophils % (Manual) 0 % (0-6) 03/01/19 19:47 Basophils % (Manual) 0 % (0-2) 03/01/19 19:47 Abs Neuts (Manual) 12.8 10^3/uL (1.7-8.2) H 03/01/19 19:47 Abs Lymphs (Manual) 0.3 10^3/uL (0.5-4.7) L 03/01/19 19:47 Abs Monocytes (Manual) 1.1 10^3/uL (0.1-1.4) 03/01/19 19:47 Absolute Eos (Manual) 0.0 10^3/uL (0.0-0.6) 03/01/19 19:47 Abs Basophils (Manual) 0.0 10^3/uL (0.0-0.2) 03/01/19 19:47 Platelet Comment ADEQUATE 03/01/19 19:47 Anisocytosis SLIGHT 03/01/19 19:47 Microcytosis SLIGHT 03/01/19 19:47 VBG pH 7.31 (7.30-7.42) 03/01/19 22:38 VBG pCO2 31.9 mmHg (35-63) L 03/01/19 22:38 VBG HCO3 15.6 mmol/L (20-32) L 03/01/19 22:38 VBG Base Excess -9.2 mmol/L 03/01/19 22:38 Sodium 131.2 mmol/L (137-145) L 03/05/19 16:22 Potassium 3.8 mmol/L (3.6-5.0) 03/05/19 16:22 Chloride 98 mmol/L (98-107) 03/05/19 16:22 Carbon Dioxide 23 mmol/L (22-30) 03/05/19 16:22 Anion Gap 10 (5-19) 03/05/19 16:22 BUN 19 mg/dL (7-20) 03/05/19 16:22 Creatinine 0.66 mg/dL (0.52-1.25) 03/05/19 16:22 Est GFR ( Amer) > 60 (>60) 03/05/19 16:22 Est GFR (MDRD) Non-Af > 60 (>60) 03/05/19 16:22 Glucose 111 mg/dL (75-110) H 03/05/19 16:22 POC Glucose 116 mg/dL (70-110) H 03/05/19 16:58 Hemoglobin A1c % 11.5 % (4.7-6.0) H 03/02/19 05:22 Lactic Acid 1.0 mmol/L (0.7-2.1) 03/02/19 05:22 Calcium 8.5 mg/dL (8.4-10.2) 03/05/19 16:22 Magnesium 2.1 mg/dL (1.6-2.3) 03/02/19 05:22 Total Bilirubin 0.4 mg/dL (0.2-1.3) 03/02/19 05:22 Direct Bilirubin 0.3 mg/dL (0.0-0.4) 03/02/19 05:22 Neonat Total Bilirubin Not Reportable 03/02/19 05:22 Neonat Direct Bilirubin Not Reportable 03/02/19 05:22 Neonat Indirect Bili Not Reportable 03/02/19 05:22 AST 31 U/L (17-59) 03/02/19 05:22 ALT 23 U/L (<50) 03/02/19 05:22 Alkaline Phosphatase 88 U/L (38-126) 03/02/19 05:22 Total Protein 6.1 g/dL (6.3-8.2) L 03/02/19 05:22 Albumin 3.0 g/dL (3.5-5.0) L 03/02/19 05:22 Triglycerides 189 mg/dL (<150) H 03/02/19 05:22 Cholesterol 151.90 mg/dL (0-200) 03/02/19 05:22 LDL Cholesterol Direct 83 mg/dL (<100) 03/02/19 05:22 VLDL Cholesterol 37.8 mg/dL (10-31) H 03/02/19 05:22 HDL Cholesterol 21 mg/dL (>40) L 03/02/19 05:22 TSH 0.74 uIU/mL (0.47-4.68) 03/02/19 05:22 Urine Color YELLOW 03/05/19 10:55 Urine Appearance CLEAR 03/05/19 10:55 Urine pH 6.0 (5.0-9.0) 03/05/19 10:55 Ur Specific [place] 1.017 03/05/19 10:55 Urine Protein 30 mg/dL (NEGATIVE) H 03/05/19 10:55 Urine Glucose (UA) >=500 mg/dL (NEGATIVE) H 03/05/19 10:55 Urine Ketones NEGATIVE mg/dL (NEGATIVE) 03/05/19 10:55 Urine Blood NEGATIVE (NEGATIVE) 03/05/19 10:55 Urine Nitrite POSITIVE (NEGATIVE) H 03/01/19 19:47 Urine Nitrite (Reflex) NEGATIVE (NEGATIVE) 03/05/19 10:55 Urine Bilirubin NEGATIVE (NEGATIVE) 03/05/19 10:55 Urine Urobilinogen NEGATIVE mg/dL (<2.0) 03/05/19 10:55 Ur Leukocyte Esterase NEGATIVE (NEGATIVE) 03/01/19 19:47 Leukocyte Esterase Rfl NEGATIVE (NEGATIVE) 03/05/19 10:55 Urine WBC (Auto) 19 /HPF 03/01/19 19:47 Urine RBC (Auto) 0 /HPF 03/05/19 10:55 Urine Bacteria (Auto) TRACE /HPF 03/01/19 19:47 Urine WBC (Reflex) 5 /HPF 03/05/19 10:55 Squamous Epi Cells Auto <1 /HPF 03/05/19 10:55 Urine Mucus (Auto) RARE /LPF 03/05/19 10:55 Urine Creatinine 41.2 mg/dL (Not Estab.) 03/01/19 19:47 Urine Microalbumin 411.3 ug/mL (Not Estab.) 03/01/19 19:47 Microalb/Creat Ratio 998.3 mg/g creat (0.0-30.0) H 03/01/19 19:47 Urine Sodium < 5 mmol/L (30-90) L 03/05/19 10:55 Urine Total Protein 53.7 mg/dL (<12) H 03/05/19 10:55 Urine Ascorbic Acid NEGATIVE (NEGATIVE) 03/05/19 10:55 Urine Opiates Screen NEGATIVE 03/01/19 19:47 Urine Methadone Screen NEGATIVE 03/01/19 19:47 Ur Barbiturates Screen NEGATIVE 03/01/19 19:47 Ur Phencyclidine Scrn NEGATIVE 03/01/19 19:47 Ur Amphetamines Screen NEGATIVE 03/01/19 19:47 U Benzodiazepines Scrn NEGATIVE 03/01/19 19:47 Urine Cocaine Screen NEGATIVE 03/01/19 19:47 U Marijuana (THC) Screen NEGATIVE 03/01/19 19:47 Impressions: Chest X-Ray 03/01/19 19:07 IMPRESSION: NO ACUTE RADIOGRAPHIC FINDING IN THE CHEST. Head CT 03/01/19 19:07 IMPRESSION: NORMAL BRAIN CT WITHOUT CONTRAST. EVIDENCE OF ACUTE STROKE: NO. Plan Goals: The patient is moving to [place] in a few days. Stroke Is this a Stroke Patient?: No Acute Heart Failure - Is this a Heart Failure Patient?: No
== END 2019-03-05 18:45 | disposition home or self-care (01) | DRG 871 ==
LOC: ER 17:54 → EH 22:03 → 3W 03-02 01:50
PROVIDERS: ADMIT Emergency Medicine; ATTEND Emergency Medicine
PROC: 5A09357 Assistance with Respiratory Ventilation, Less than 24 Consecutive Hours, Continuous Positive Airway Pressure (ICD-10-PCS; principal; 2019-03-04)
DX: A41.51 Sepsis due to Escherichia coli [E. coli] (principal); E11.10 Type 2 diabetes mellitus with ketoacidosis without coma; N39.0 Urinary tract infection, site not specified; E87.2 Acidosis; Z16.23 Resistance to quinolones and fluoroquinolones; E78.5 Hyperlipidemia, unspecified; G47.33 Obstructive sleep apnea (adult) (pediatric); I95.9 Hypotension, unspecified; Z79.4 Long term (current) use of insulin; Z79.899 Other long term (current) drug therapy; Z83.3 Family history of diabetes mellitus
CPT/HCPCS: 36415; 70450; 71046; 80048; 80053; 80061; 80307; 81001; 82043; 82570; 82803; 82962; 83036; 83605; 83735; 84156; 84300; 84443; 85025; 85027; 87040; 87077; 87086; 87088; 87150; 87186; 93005; 93010; 94660; 99285; J0696; J1265; J1644; J1815; J2185; J2543; J3370; J3490; J7030; J7050; J7060; J7120